=== PATIENT | male | born 1955 | race Caucasian/White ===

== ENCOUNTER 2018-06-12 06:02 | Day surgery (SDC) | payer OTHER ==
[~2018-06-12] VITALS: Ht 180.3 cm; Wt 141.3 kg
[2018-06-12] MEDS ORDERED: ASPI-817 PO (07:25)
[2018-06-12] MEDS ORDERED: BP MED (07:25)
[2018-06-12] MEDS ORDERED: VITAMIN D PO (07:25)
[2018-06-12 07:28] VITALS: Ht 180.3 cm; Wt 141.3 kg
--- NOTE | 2018-06-12 07:43 | PREAC ---
Date/Time of Note Date/Time of Note DATE: 06/12/18 TIME: 07:38 Anesthesia Eval and Record Evaluation Time Pre-Procedure Interview DATE: 06/12/18 TIME: 07:38 Age 62 Sex male NPO: 8 hrs Preoperative diagnosis screening Planned procedure colonoscopy Past Medical History Past Medical History: Includes (hx chest pain but denies any chest pain within 4 yrs nor any difficulty breathing) Cardio: HTN GI: Morbid obesity Surgery & Anesthesia Issues No known issue Meds Anticoagulation: No Beta Jorge within 24 hr: No Reason Beta Jorge not given: Pt. 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) Pre-procedure Exam Airway: Adequate mouth opening, Adequate thyromental dist Mallampati: Mallampati II Teeth: Normal (missing teeth lower molars) Lung: Normal Heart: Normal ASA Physical Status ASA physical status: 3 Emergency: None Planned Anesthetic General/MAC: MAC Pre-operative Attestations Prior to commencing anesthesia and surgery, the patient was re-evaluated, there was verification of: *The patient's identity *The results of appropriate recent lab work and preoperative vital signs *The above evaluation not changing prior to induction *Anesthetic plan, risk benefits, alternative and complications discussed with p atient/family; questions answered; patient/family understands, accepts and wishes to proceed. ERICK JOHN Jun 12, 2018 07:43
[2018-06-12 07:46] VITALS: BP 132/83; PULSE 59; RESP 13
[2018-06-12] MEDS ORDERED: PROPOFOL 60 ML ONE (07:48)
[2018-06-12] MEDS ORDERED: LIDOCAINE 2% (SDV) 5 ML INJ ONE (07:48)
[2018-06-12] MEDS ORDERED: PHENYLephrine (100 MCG/ML) 10ML SYG ONE (07:48)
[2018-06-12] MEDS ORDERED: ALBUTEROL 0.083% (NEB) 2.5 MG/3 ML AMP HHN PRN (08:00)
[2018-06-12] MEDS ORDERED: ONDANSETRON 4 MG INJ IV PRN (08:00)
[2018-06-12] MEDS ORDERED: FENTAnyl 50 MCG/ML VIAL IV PRN (08:00)
[2018-06-12] MEDS ORDERED: ACETAMINOPHEN 500 MG TAB PO PRN (08:00)
--- NOTE | 2018-06-12 08:40 | PAC ---
Date/Time of Note Date/Time of Note DATE: 06/12/18 TIME: 08:37 Post-Anesthesia Notes Post-Anesthesia Note Last documented vital signs Vital Signs Date Temp Pulse Resp B/P (MAP) Pulse Ox O2 O2 Flow FiO2 Time Delivery Rate 06/12/18 98.2 98 59 55 13 16 132/83 96 100 Room 6L 07:46 083 (99) 136/ Air face 3 79 mask Activity: WNL Respiratory function: WNL Cardiovascular function: WNL Mental status: Baseline Pain reasonably controlled: Yes Hydration appropriate: Yes Nausea/Vomiting absent: Yes ERICK JOHN Jun 12, 2018 08:40
[2018-06-12 09:05] VITALS: BP 155/85; PULSE 58; RESP 18
== END 2018-06-12 10:13 | disposition home or self-care (01) ==
LOC: GIL 06:02
PROVIDERS: ATTEND Internal Medicine Gastroenterology
DX: Z12.11 Encounter for screening for malignant neoplasm of colon (principal); D12.5 Benign neoplasm of sigmoid colon; K64.8 Other hemorrhoids; I10 Essential (primary) hypertension; E66.01 Morbid (severe) obesity due to excess calories; Z68.41 Body mass index [BMI] 40.0-44.9, adult
CPT/HCPCS: 45380; J2370; Z7610; 88305